=== PATIENT | male | born 1935 | race Caucasian/White ===

== ENCOUNTER 2017-10-13 14:35 | Inpatient (IN) ==
[2017-10-13] MEDS ORDERED: Vancomycin Inj 1,500 MG in Sodium Chlor 0.9% Inj 500 ML IV.SIG ONE (16:43)
[2017-10-13] MEDS ORDERED: Piperacil/Tazo 3.375 GM Premix 50 ML IV.SIG ONE (16:43)
--- NOTE | 2017-10-13 17:07 | ED ---
HPI General Chief complaint: Extremity Injury, Upper Stated complaint: hand complaint Time Seen by Provider: 10/13/17 16:03 Source: patient and family Mode of arrival: ambulatory Limitations: no limitations History of Present Illness HPI narrative: 82-year-old male with history of diabetes mellitus with poor neuropathy presents emergency department for evaluation of right distal third finger swelling, redness that is been persistent for several days. He says that he accidentally filed his nail down too far approximately 2 weeks ago when this problem started. Says he was treated with a course of antibiotics over the last 5 days. Says his finger seemed to improve but quickly worsened over the last 2 days. Patient denies significant pain but admits to a history of peripheral neuropathy and has limited sensation of his finger. He denies fevers or chills. Denies nausea vomiting or diarrhea. He has no other complaints today. Related Data Allergies Allergy/AdvReac Type Severity Reaction Status Date / Time No Known Allergies Allergy Unverified 10/13/17 16:20 Review of Systems Except as stated in HPI: all other systems reviewed are negative PMFSH Social History Social History Second Hand Smoke Exposure: No Smoking Status: Former smoker Tobacco Type: Cigarettes How Often Do You Have a Drink Containing Alcohol: Never Recent Travel in [facility] within the Last 8 Weeks: No Recent Out of Country Travel within the Last 8 Weeks: No Immunization History Tetanus Immunization: <5 Years Exam Narrative Exam Narrative: GENERAL: Well-developed, well-nourished in no apparent distress SKIN: Focused skin assessment warm/dry. Right hand third digit-erythematous and edematous to the entire third finger, distally nail is loosened from the nail bed, white, purulent malodorous discharge easily expressed, limited sensation although patient does feel light touch to the finger. Limited flexion and extension although he does have the ability to perform this passively and actively. HEAD: Atraumatic. Normocephalic. EYES: Pupils equal and round. No scleral icterus. No injection or drainage. ENT: No nasal bleeding or discharge. Mucous membranes pink and moist. NECK: Trachea midline. No JVD. CARDIOVASCULAR: Regular rate and rhythm. No murmur appreciated. RESPIRATORY: No accessory muscle use. Clear to auscultation. Breath sounds equal bilaterally. GASTROINTESTINAL: Abdomen soft, non-tender, nondistended. Hepatic and splenic margins not palpable. MUSCULOSKELETAL: No obvious deformities. No clubbing. No cyanosis. No edema. NEUROLOGICAL: Awake and alert. No obvious cranial nerve deficits. Motor grossly within normal limits. Normal speech. PSYCHIATRIC: Appropriate mood and affect; insight and judgment normal. Course Initial Documented Vital Signs Temperature 98.0 F 10/13/17 14:42 Pulse Rate 93 H 10/13/17 14:42 Respiratory Rate 18 10/13/17 14:42 Blood Pressure 154/70 H 10/13/17 14:42 Pulse Oximetry 100 10/13/17 14:42 Last Documented Vital Signs Temperature 97.2 F L 10/13/17 21:44 Pulse Rate 73 10/13/17 21:44 Respiratory Rate 18 10/13/17 21:44 Blood Pressure 125/61 10/13/17 21:44 Pulse Oximetry 97 10/13/17 21:44 Medical Decision Making MDM Narrative Medical decision making narrative: 82-year-old male presents emergency department evaluation of right third finger swelling, redness, mild pain that is been persistent for the last couple days. Patient has failed an out patient antibiotic course. While in the emergency department, the hand specialist on- call, Dr. Galarza was available for consult. Patient was evaluated and found to be a non-surgical candidate at this time. He recommended IV antibiotics and admission for monitoring. We will obtain full labs and will admit after results are back. X-ray consistent with osteomyelitis. Zosyn and vancomycin administered. Patient is stable at this time. The nurse, Justus, brought to my attention the rash on the patient's chest. Patient states that this is chronic and occasionally gets steroids but says that the rash does not bother him at this point. He says that he has been diagnosed with eczema. He will be admitted to Dr. Sher. Differential Diagnosis Differential Diagnosis: Right third finger tenosynovitis, cellulitis, erysipelas , abscess Lab Data Result diagrams: 10/13/17 16:50 10/13/17 16:50 Lab Results 10/13/17 10/13/17 10/13/17 Range/Units 16:50 16:50 16:50 WBC 9.0 (4.0-11.0) th/mm3 RBC 4.47 L (4.50-5.90) mil/mm3 Hgb 12.8 L (13.0-17.0) gm/dL Hct 38.2 L (39.0-51.0) % MCV 85.5 (80.0-100.0) fL MCH 28.6 (27.0-34.0) pg MCHC 33.5 (32.0-36.0) % RDW 14.4 (11.6-17.2) % Plt Count 291 (150-450) th/mm3 MPV 7.5 (7.0-11.0) fL Neut % (Auto) 77.7 H (16.0-70.0) % Lymph % (Auto) 10.0 (9.0-44.0) % Owsley % (Auto) 8.2 H (0.0-8.0) % Eos % (Auto) 3.7 (0.0-4.0) % Baso % (Auto) 0.4 (0.0-2.0) % Neut # (Auto) 7.0 (1.8-7.7) th/mm3 Lymph # (Auto) 0.9 L (1.0-4.8) th/mm3 Owsley # (Auto) 0.7 (0.0-0.9) th/mm3 Eos # (Auto) 0.3 (0.0-0.4) th/mm3 Baso # (Auto) 0.0 (0.0-0.2) th/mm3 WBC Differential . Differential Comment Auto diff final PT (9.8-11.6) sec INR Ratio APTT (24.3-30.1) sec Sodium 138 (136-145) meq/L Potassium 4.2 (3.5-5.1) meq/L Chloride 103 (98-107) meq/L Carbon Dioxide 25.8 (21.0-32.0) meq/L Anion Gap 9 (5-15) meq/L BUN 31 H (7-18) mg/dL Creatinine 1.60 H (0.60-1.30) mg/dL Estimated GFR 41 L (>89) mL/min POC Glucose (68-110) mg/dl Random Glucose 173 H (74-106) mg/dL Lactic Acid 1.7 (0.4-2.0) mmol/L Calcium 9.3 (8.5-10.1) mg/dL Total Bilirubin 0.3 (0.2-1.0) mg/dL AST 18 (15-37) U/L ALT 19 (12-78) U/L Alkaline Phosphatase 96 (45-117) U/L Total Protein 7.9 (6.4-8.2) g/dL Albumin 3.4 (3.4-5.0) g/dL 10/13/17 10/13/17 Range/Units 17:30 22:08 WBC (4.0-11.0) th/mm3 RBC (4.50-5.90) mil/mm3 Hgb (13.0-17.0) gm/dL Hct (39.0-51.0) % MCV (80.0-100.0) fL MCH (27.0-34.0) pg MCHC (32.0-36.0) % RDW (11.6-17.2) % Plt Count (150-450) th/mm3 MPV (7.0-11.0) fL Neut % (Auto) (16.0-70.0) % Lymph % (Auto) (9.0-44.0) % Owsley % (Auto) (0.0-8.0) % Eos % (Auto) (0.0-4.0) % Baso % (Auto) (0.0-2.0) % Neut # (Auto) (1.8-7.7) th/mm3 Lymph # (Auto) (1.0-4.8) th/mm3 Owsley # (Auto) (0.0-0.9) th/mm3 Eos # (Auto) (0.0-0.4) th/mm3 Baso # (Auto) (0.0-0.2) th/mm3 WBC Differential Differential Comment PT 10.3 (9.8-11.6) sec INR 1.0 Ratio APTT 30.3 H (24.3-30.1) sec Sodium (136-145) meq/L Potassium (3.5-5.1) meq/L Chloride (98-107) meq/L Carbon Dioxide (21.0-32.0) meq/L Anion Gap (5-15) meq/L BUN (7-18) mg/dL Creatinine (0.60-1.30) mg/dL Estimated GFR (>89) mL/min POC Glucose 200 H (68-110) mg/dl Random Glucose (74-106) mg/dL Lactic Acid (0.4-2.0) mmol/L Calcium (8.5-10.1) mg/dL Total Bilirubin (0.2-1.0) mg/dL AST (15-37) U/L ALT (12-78) U/L Alkaline Phosphatase (45-117) U/L Total Protein (6.4-8.2) g/dL Albumin (3.4-5.0) g/dL Imaging Data Radiologist's impression: Finger X-Ray 10/13/17 16:43 CONCLUSION: Destructive change involving the third distal phalanx most characteristic of osteomyelitis. Acute trauma with fracture could have a similar appearance. Discharge Plan Discharge Disposition Patient Disposition: 30 Still Patient Discharge Condition Condition: Stable Discharge Details Diagnosis: Cellulitis, Osteomyelitis Physicians Team ED Provider: Tessa Uriostegui ED Midlevel Provider: Lise Wolf Primary Care Provider: Primary Care Delia Sosa Attending Provider: Liberty Zheng Other Providers: Jamari Galarza Status ED Status: Left Department Discharge Information Discharge Date/Time: 10/13/17 21:36
[2017-10-13 17:18] LABS: Baso % (Auto) 0.4 % (0.0-2.0); Eos # (Auto) 0.3 th/mm3 (0.0-0.4); Eos % (Auto) 3.7 % (0.0-4.0); Hematocrit 38.2 % (39.0-51.0); Hemoglobin 12.8 gm/dL (13.0-17.0); Lymph # (Auto) 0.9 th/mm3 (1.0-4.8); Mean Corpuscular HGB Conc 33.5 % (32.0-36.0); Mean Corpuscular Hemoglobin 28.6 pg (27.0-34.0); Mean Corpuscular Volume 85.5 fL (80.0-100.0); Mean Platelet Volume 7.5 fL (7.0-11.0); Mono # (Auto) 0.7 th/mm3 (0.0-0.9); Mono % (Auto) 8.2 % (0.0-8.0); Neut % (Auto) 77.7 % (16.0-70.0); Platelet Count 291 th/mm3 (150-450); Red Blood Count 4.47 mil/mm3 (4.50-5.90); Red Cell Distribution Width 14.4 % (11.6-17.2)
--- NOTE | 2017-10-13 17:26 | XR ---
EXAM DATE: 10/13/2017 5:16 PM EDT AGE/SEX: 82 years / Male INDICATIONS: Right hand third digit redness and swelling. CLINICAL DATA: This is the patient's initial encounter. Patient reports that signs and symptoms have been present for 2 weeks and indicates a pain score of 0/10. MEDICAL/SURGICAL HISTORY: Diabetes mellitus type II. Peripheral neuropathy. None. COMPARISON: No prior exams available for comparison. FINDINGS: AP, lateral and oblique views of the third digit were obtained and demonstrate destructive change inv olving the third distal phalanx with multiple small adjacent fragments of bone. There is diffuse soft tissue swelling over the third digit. CONCLUSION: Destructive change involving the third distal phalanx most characteristic of osteomyelitis. Acute tra terrence with fracture could have a similar appearance. Electronically signed by: Socrates Ordaz MD 10/13/2017 5:24 PM EDT
[2017-10-13 17:30] LABS: Albumin 3.4 g/dL (3.4-5.0); Anion Gap 9 meq/L (5-15); Aspartate Aminotransferase 18 U/L (15-37); Blood Urea Nitrogen 31 mg/dL (7-18); Calcium 9.3 mg/dL (8.5-10.1); Carbon Dioxide 25.8 meq/L (21.0-32.0); Chloride 103 meq/L (98-107); Glomerular Filtration Rate 41 mL/min (>89); Glucose,Random 173 mg/dL (74-106); Potassium 4.2 meq/L (3.5-5.1); Sodium 138 meq/L (136-145)
[2017-10-13 17:31] LABS: Alanine Aminotransferase 19 U/L (12-78)
[2017-10-13 17:33] LABS: Alkaline Phosphatase 96 U/L (45-117); Total Protein 7.9 g/dL (6.4-8.2)
[2017-10-13] MEDS ORDERED: Bisacodyl 10 MG Supp RECTAL PRN (18:06)
[2017-10-13] MEDS ORDERED: Temazepam 15 MG Capsule PO PRN (18:06)
[2017-10-13] MEDS ORDERED: Dextrose 50% in Water 50 ML Vial IV.PUSH PRN (18:10)
[2017-10-13 18:51] LABS: Activated Partial Thrombo Time 30.3 sec (24.3-30.1); Prothrombin Time 10.3 sec (9.8-11.6)
[2017-10-13] MEDS ORDERED: Vancomycin Consult Pharmacy 1 EACH OTHER SCH (19:00)
[2017-10-13] MEDS: Piperacil/Tazo 4.5 GM Premix 4.5 GM/100 ML BAG IV.SIG SCH (19:55)
--- NOTE | 2017-10-13 21:25 | P.HPIM ---
History of Present Illness Primary Care Physician: No Primary Care Physician History of Present Illness: This is an 82-year-old male with a PMH of DM and Peripheral Neuropathy who presented to ER with complaints of right third finger swelling and redness. Pt states he filed his nail down w/ "sandpaper" approx 4 days ago, since he has neuropathy of that digit he didn't feel it when he scraped the skin on his finger. States he is visiting from [place], was previously in [place] a few days ago and was seen at [facility] for c/o right third finger redness/ swelling. Was discharged on antibiotics which he states he has been taking and noted improvement, however now w/ increasing redness/swelling. Denies fever or chills. On arrival, BP 154/70, HR 93, O2 sat 100% on RA, Afebrile. CBC essentially unremarkable. INR 1.0. Creatinine 1.60, no previous labs for comparison. Finger X-ray with destructive changes involving the third distal phalanx most characteristic of osteomyelitis versus acute trauma with fracture. Dr. Galarza consulted, plan is for surgical intervention in am. S/p Vanc/ Zosyn in ER. - Diagnosis (1) Osteomyelitis (2) DM (diabetes mellitus) (3) Renal insufficiency Inpatient Certification: I certify that the inpatient services were ordered in accordance with Medicare regulations governing the order. This includes certification that hospital inpatient services are reasonable and necessary and in the case of services not specified as inpatient-only under 42 CFR 419.22(n), that they are appropriately provided as inpatient services in accordance to with the 2-midnight benchmark under 43 CFR 412.3(e) Estimated Total Length of Stay (Days): 2 Plans for Post Hospital Care: Home Review of Systems All other systems reviewed negative except as stated in HPI PMFSH - History History Provided By: Patient - Tobacco History Second Hand Smoke Exposure: No Tobacco Use In Past 30 Days: No Smoking Status: Former smoker Tobacco Type: Cigarettes - Alcohol History How Often Do You Have a Drink Containing Alcohol: Never - Travel History Recent Travel in the [place] Within the Last 8 Weeks: No Recent Travel Out of the Country Within the Last 8 Weeks: No - Immunization History Tetanus Immunization: <5 Years Medications and Allergies Active Medications: Active Medications Al Hydroxide/Mg Hydroxide (Milk Of Magnesia Liq) 30 ml PO Q12H PRN PRN Reason: Mild Constipation Bisacodyl (Dulcolax Supp) 10 mg RECTAL DAILY PRN PRN Reason: SEVERE CONSITIPATION Dextrose (D50w Vial) 50 ml IV.PUSH UNSCH PRN PRN Reason: PER HYPOGLYCEMIA PROTOCOL Glucagon (Glucagon Inj) 1 mg OTHER PRN PRN PRN Reason: for Hypoglycemia Protocol Piperacillin/Tazobactam/Dextrose (Zosyn 4.5 Gm Premix) 4.5 gm in 100 mls @ 200 mls/hr IV.SIG Q6H JESSICA Last Admin: 10/13/17 19:55 Dose: 200 mls/hr Pharmacy Profile Note (Vancomycin Consult Pharmacy) 0 mls @ 0 mls/hr OTHER UNSCH JESSICA Sodium Chloride (Ns Inj) 1,000 mls @ 35 mls/hr IV.CONT .Q24H [facility] Insulin Aspart (Novolog Insulin Correctional Sugar Inj) 0 unit SQ ACHS JESSICA; Protocol Lactulose (Lactulose Liq) 30 ml PO DAILY PRN PRN Reason: SEVERE CONSITIPATION Senna/Docusate Sodium (Renay-Colace) 1 tab PO BID [facility] Sennosides (Senokot) 17.2 mg PO Q12H PRN PRN Reason: Moderate Constipation Temazepam (Restoril) 15 mg PO HS PRN PRN Reason: INSOMNIA Allergies Allergy/AdvReac Type Severity Reaction Status Date / Time No Known Allergies Allergy Unverified 10/13/17 16:20 Exam Vital signs: Vital Signs 10/13/17 14:42 10/13/17 17:06 Temperature 98.0 F Pulse Rate 93 H Respiratory Rate 18 Blood Pressure 154/70 H Pulse Oximetry 100 96 Intake & Output 10/13/17 10/13/17 10/14/17 06:59 18:59 06:59 Weight 74.389 kg Narrative: PE: GENERAL: Extremely pleasant elderly white male in no acute distress. HEENT: PERRLA, EOMI. No scleral icterus or conjunctival pallor. No lid lag or facial droop. CARDIOVASCULAR: Regular rate and rhythm. No obvious murmurs to auscultation. No chest tenderness to palpation. RESPIRATORY: No obvious rhonchi or wheezing. Clear to auscultation. Breath sounds equal bilaterally. GASTROINTESTINAL: Abdomen soft, non-tender, nondistended. BS normal. MUSCULOSKELETAL: Extremities without clubbing, cyanosis, or edema. No obvious deformities. 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 Right 3rd finger redness/swelling, decreased ROM due to swelling. NEUROLOGICAL: Awake, alert and oriented x4. No focal neurologic deficits. Moving both upper and lower extremities spontaneously. Results - Labs CBC & Chem 7: 10/13/17 16:50 10/13/17 16:50 Labs: Short CBC 10/13/17 Range/Units 16:50 WBC 9.0 (4.0-11.0) th/mm3 Hgb 12.8 L (13.0-17.0) gm/dL Hct 38.2 L (39.0-51.0) % Plt Count 291 (150-450) th/mm3 BMP 10/13/17 16:50 Sodium 138 Potassium 4.2 Chloride 103 Carbon Dioxide 25.8 BUN 31 H Creatinine 1.60 H Calcium 9.3 Liver Function 10/13/17 Range/Units 16:50 Total Bilirubin 0.3 (0.2-1.0) mg/dL AST 18 (15-37) U/L ALT 19 (12-78) U/L Alkaline Phosphatase 96 (45-117) U/L Albumin 3.4 (3.4-5.0) g/dL - Imaging Impressions Finger X-Ray 10/13/17 16:43 CONCLUSION: Destructive change involving the third distal phalanx most characteristic of osteomyelitis. Acute trauma with fracture could have a similar appearance. Caprini VTE Risk Assessment Caprini VTE Risk Assessment: No/Low Risk (score <= 1) Caprini Risk Assessment Model: Point Value = 1 Point Value = 2 Point Value = 3 Point Value = 5 Age 41-60 Minor surgery BMI > 25 kg/m2 Swollen legs Varicose veins or History of unexplained or recurrent spontaneous Oral contraceptives or hormone replacement Sepsis (< 1 month) Serious lung disease, including pneumonia (< 1 month) Abnormal pulmonary function Acute myocardial infarction Congestive heart failure (< 1 month) History of inflammatory bowel disease Medical patient at bed rest Age 61-74 Arthroscopic surgery Major open surgery (> 45 min) Laparoscopic surgery (> 45 min) Malignancy Confined to bed (> 72 hours) Immobilizing plaster cast Central venous access Age >= 75 History of VTE Family history of VTE Factor V Leiden Prothrombin [id number] Lupus anticoagulant Anticardiolipin antibodies Elevated serum homocysteine Heparin-induced thrombocytopenia Other congenital or acquired thrombophilia Stroke (< 1 month) Elective arthroplasty Hip, pelvis, or leg fracture Acute spinal cord injury (< 1 month) Prophylaxis Regimen: Total Risk Factor Score Risk Level Prophylaxis Regimen 0-1 Low Early ambulation 2 Moderate Order ONE of the following: *Sequential Compression Device (SCD) *Heparin 5000 units SQ BID 3-4 Higher Order ONE of the following medications: *Heparin 5000 units SQ TID *Enoxaparin/Lovenox 40 mg SQ daily (WT < 150 kg, CrCl > 30 mL/min) *Enoxaparin/Lovenox 30 mg SQ daily (WT < 150 kg, CrCl > 10-29 mL/min) *Enoxaparin/Lovenox 30 mg SQ BID (WT < 150 kg, CrCl > 30 mL/min) AND/OR *Sequential Compression Device (SCD) 5 or more Highest Order ONE of the following medications: *Heparin 5000 units SQ TID (Preferred with Epidurals) *Enoxaparin/Lovenox 40 mg SQ daily (WT < 150 kg, CrCl > 30 mL/min) *Enoxaparin/Lovenox 30 mg SQ daily (WT < 150 kg, CrCl > 10-29 mL/min) *Enoxaparin/Lovenox 30 mg SQ BID (WT < 150 kg, CrCl > 30 mL/min) AND *Sequential Compression Device (SCD) Assessment and Plan - Assessment (1) Osteomyelitis Code(s): M86.9 - Osteomyelitis, unspecified Status: Acute (2) DM (diabetes mellitus) Code(s): E11.9 - Type 2 diabetes mellitus without complications Status: Acute (3) Renal insufficiency Code(s): N28.9 - Disorder of kidney and ureter, unspecified Status: Acute - Plan A/P: 1. Osteomyelitis: Right 3rd finger, s/p trauma after using sandpaper to file his nail 4 days ago, s/p eval at [facility], on PO antibiotics w/ transient improvement, now w/ worsening erythema/edema. Finger X-ray w/ destructive changes of 3rd distal phalanx characteristic of osteomyelitis vs trauma w/ fracture. Dr. Galarza consulted, plan is for surgical intervention in am. NPO after midnight, IVF, analgesics/antiemetics as needed. Continue IV Abx 2. DM: Sliding scale w/ Accu-Cheks. 3. Renal Insufficiency: Creatinine 1.60, no previous labs for comparison, monitor I/O, IVF, repeat labs in am. 4. DVT Prophylaxis: SCD/Teds 5. Social work for d/c planning as needed 6. Case discussed w/ ER physician at length, labs/records/imaging reviewed by me. (1) Osteomyelitis Qualifiers: Osteomyelitis type: subacute Osteomyelitis location: hand Laterality: right Qualified Code(s): M86.241 - Subacute osteomyelitis, right hand
[2017-10-13] MEDS: Sod Chloride 0.9% Inj 1,000 ML IV.CONT SCH (22:06)
[2017-10-13] MEDS: Senna/Docusate Sodium 8.6/50 MG Tablet PO SCH (22:12)
[2017-10-13] MEDS: Insulin NovoLOG Aspart Correctional Sugar Inj SQ SCH (22:13)
[2017-10-14] MEDS: Piperacil/Tazo 4.5 GM Premix 4.5 GM/100 ML BAG IV.SIG SCH ×2 (00:31→06:17)
[2017-10-14] MEDS: Senna/Docusate Sodium 8.6/50 MG Tablet PO SCH ×2 (08:42→22:03)
[2017-10-14] MEDS: Insulin NovoLOG Aspart Correctional Sugar Inj SQ SCH ×4 (08:42→22:02)
[2017-10-14 09:11] LABS: Baso # (Auto) 0.1 th/mm3 (0.0-0.2); Baso % (Auto) 0.7 % (0.0-2.0); Eos # (Auto) 0.5 th/mm3 (0.0-0.4); Hematocrit 32.6 % (39.0-51.0); Hemoglobin 10.9 gm/dL (13.0-17.0); Lymph % (Auto) 12.7 % (9.0-44.0); Mean Corpuscular HGB Conc 33.3 % (32.0-36.0); Mean Corpuscular Hemoglobin 28.4 pg (27.0-34.0); Mean Corpuscular Volume 85.3 fL (80.0-100.0); Mean Platelet Volume 7.9 fL (7.0-11.0); Mono # (Auto) 0.7 th/mm3 (0.0-0.9); Mono % (Auto) 9.3 % (0.0-8.0); Neut # (Auto) 5.5 th/mm3 (1.8-7.7); Neut % (Auto) 70.3 % (16.0-70.0); Platelet Count 257 th/mm3 (150-450); Red Blood Count 3.82 mil/mm3 (4.50-5.90); Red Cell Distribution Width 14.2 % (11.6-17.2); White Blood Count 7.8 th/mm3 (4.0-11.0)
[2017-10-14 09:40] LABS: Albumin 2.7 g/dL (3.4-5.0); Anion Gap 9 meq/L (5-15); Aspartate Aminotransferase 14 U/L (15-37); Blood Urea Nitrogen 25 mg/dL (7-18); Carbon Dioxide 26.5 meq/L (21.0-32.0); Chloride 106 meq/L (98-107); Glomerular Filtration Rate 45 mL/min (>89); Glucose,Random 85 mg/dL (74-106); Potassium 4.7 meq/L (3.5-5.1); Sodium 141 meq/L (136-145)
[2017-10-14 09:41] LABS: Alanine Aminotransferase 15 U/L (12-78); Alkaline Phosphatase 68 U/L (45-117); Total Protein 6.6 g/dL (6.4-8.2)
[2017-10-14] MEDS ORDERED: Morphine Inj 4 MG/ML Vial IV.PUSH PRN ×4 (11:08)
[2017-10-14] MEDS ORDERED: Naloxone Inj 0.4 MG/ML Vial IV.PUSH PRN (11:08)
[2017-10-14] MEDS ORDERED: oxyCODONE/Acetaminophen 10/325 Tablet PO PRN (11:08)
[2017-10-14] MEDS ORDERED: Acetaminophen 325 MG Tablet PO PRN (11:08)
--- NOTE | 2017-10-14 11:13 | P.PNIM ---
Subjective Interval history: This is an 82-year-old male with a PMH of DM and Peripheral Neuropathy who presented to ER with complaints of right third finger swelling and redness. Pt states he filed his nail down w/ "sandpaper" approx 4 days ago, since he has neuropathy of that digit he didn't feel it when he scraped the skin on his finger. States he is visiting from [place], was previously in [place] a few days ago and was seen at [facility] for c/o right third finger redness/ swelling. Was discharged on antibiotics which he states he has been taking and noted improvement, however now w/ increasing redness/swelling. Denies fever or chills. On arrival, BP 154/70, HR 93, O2 sat 100% on RA, Afebrile. CBC essentially unremarkable. INR 1.0. Creatinine 1.60, no previous labs for comparison. Finger X-ray with destructive changes involving the third distal phalanx most characteristic of osteomyelitis versus acute trauma with fracture. Dr. Galarza consulted, plan is for surgical intervention in am. S/p Vanc/ Zosyn in ER. 10-14 NO NEW COMPLAINTS SEEN BY SURGERY WILL ORDER RIGHT HAND MRI NO SURGERY SCHEDULED WILL TRY TO GET HOME MEDS DONE DW RN and PT AND CM WILL ORDER MRI AWAIT CULTURES CONTINUE VANCO AND ZOSYN MIGHT NEED ID DEPENDING ON MRI RESULTS Physical Exam Vital signs: Vital Signs 10/13/17 14:42 10/13/17 17:06 10/13/17 21:44 Temperature 98.0 F 97.2 F L Pulse Rate 93 H 73 Respiratory Rate 18 18 Blood Pressure 154/70 H 125/61 Pulse Oximetry 100 96 97 10/14/17 00:00 10/14/17 04:00 10/14/17 08:54 Temperature 97.9 F 97.5 F L 97.8 F Pulse Rate 68 63 67 Respiratory Rate 20 18 16 Blood Pressure 102/57 L 94/53 L 121/65 Pulse Oximetry 96 96 98 Intake & Output 10/13/17 10/14/17 10/14/17 18:59 06:59 18:59 Intake Total 200 / 200 Balance 200 / 200 Weight 74.389 kg 74.2 kg Intake: IV 200 / 200 Zosyn 4.5 GM Premix 4.5 gm In 200 / 200 100 ml @ 200 mls/hr IV.SIG Q6H JESSICA Rx#:[id number] Other: # Voids 1 Date of Last Bowel Movement 10/13/17 10/13/17 Weight On Admission 74.2 kg Narrative: GENERAL: Awake alert and oriented 3 talkative and cooperative SKIN: Warm and dry. Right middle finger with wounds and erythema decreased range of motion and tenderness HEAD: Atraumatic. Normocephalic. EYES: Pupils equal and round. No scleral icterus. No injection or drainage. Extraocular muscles intact ENT: No nasal bleeding or discharge. Mucous membranes pink and moist. Tongue is midline NECK: Trachea midline. No JVD. Supple CARDIOVASCULAR: Regular rate and rhythm. S1-S2 no S3 or S4 RESPIRATORY: No accessory muscle use. Clear to auscultation. Breath sounds equal bilaterally. GASTROINTESTINAL: Abdomen soft, non-tender, nondistended. Hepatic and splenic margins not palpable. MUSCULOSKELETAL: Extremities without clubbing, cyanosis, or edema. No obvious deformities. 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 No obvious cranial nerve deficits. Motor grossly within normal limits. Five out of 5 muscle strength in the arms and legs. Normal speech. 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 Results - Labs CBC & Chem 7: 10/14/17 07:52 10/14/17 07:52 Laboratory Results - last 24 hr 10/13/17 10/13/17 10/13/17 16:50 16:50 16:50 WBC 9.0 RBC 4.47 L Hgb 12.8 L Hct 38.2 L MCV 85.5 MCH 28.6 MCHC 33.5 RDW 14.4 Plt Count 291 MPV 7.5 Neut % (Auto) 77.7 H Lymph % (Auto) 10.0 [place] % (Auto) 8.2 H Eos % (Auto) 3.7 Baso % (Auto) 0.4 Neut # (Auto) 7.0 Lymph # (Auto) 0.9 L [place] # (Auto) 0.7 Eos # (Auto) 0.3 Baso # (Auto) 0.0 WBC Differential . Differential Comment Auto diff final PT INR APTT Sodium 138 Potassium 4.2 Chloride 103 Carbon Dioxide 25.8 Anion Gap 9 BUN 31 H Creatinine 1.60 H Estimated GFR 41 L POC Glucose Random Glucose 173 H Lactic Acid 1.7 Calcium 9.3 Total Bilirubin 0.3 AST 18 ALT 19 Alkaline Phosphatase 96 Total Protein 7.9 Albumin 3.4 10/13/17 10/13/17 10/14/17 17:30 22:08 07:46 WBC RBC Hgb Hct MCV MCH MCHC RDW Plt Count MPV Neut % (Auto) Lymph % (Auto) [place] % (Auto) Eos % (Auto) Baso % (Auto) Neut # (Auto) Lymph # (Auto) [place] # (Auto) Eos # (Auto) Baso # (Auto) WBC Differential Differential Comment PT 10.3 INR 1.0 APTT 30.3 H Sodium Potassium Chloride Carbon Dioxide Anion Gap BUN Creatinine Estimated GFR POC Glucose 200 H 98 Random Glucose Lactic Acid Calcium Total Bilirubin AST ALT Alkaline Phosphatase Total Protein Albumin 10/14/17 10/14/17 07:52 07:52 WBC 7.8 RBC 3.82 L Hgb 10.9 L Hct 32.6 L MCV 85.3 MCH 28.4 MCHC 33.3 RDW 14.2 Plt Count 257 MPV 7.9 Neut % (Auto) 70.3 H Lymph % (Auto) 12.7 [place] % (Auto) 9.3 H Eos % (Auto) 7.0 H Baso % (Auto) 0.7 Neut # (Auto) 5.5 Lymph # (Auto) 1.0 [place] # (Auto) 0.7 Eos # (Auto) 0.5 H Baso # (Auto) 0.1 WBC Differential . Differential Comment Auto diff final PT INR APTT Sodium 141 Potassium 4.7 Chloride 106 Carbon Dioxide 26.5 Anion Gap 9 BUN 25 H Creatinine 1.49 H Estimated GFR 45 L POC Glucose Random Glucose 85 Lactic Acid Calcium 9.0 Total Bilirubin 0.5 AST 14 L ALT 15 Alkaline Phosphatase 68 Total Protein 6.6 D Albumin 2.7 L D Microbiology 10/13/17 16:50 Blood - Peripheral Aerobic Blood Culture - Preliminary No growth in 1 day 10/13/17 16:50 Blood - Peripheral Anaerobic Blood Culture - Preliminary No growth in 1 day 10/13/17 16:55 Blood - Peripheral Aerobic Blood Culture - Preliminary No growth in 1 day 10/13/17 16:55 Blood - Peripheral Anaerobic Blood Culture - Preliminary No growth in 1 day 10/13/17 16:50 Abscess - Finger Gram Stain - Final - Imaging Impressions Finger X-Ray 10/13/17 16:43 CONCLUSION: Destructive change involving the third distal phalanx most characteristic of osteomyelitis. Acute trauma with fracture could have a similar appearance. - Procedures NONE Assessment and Plan - Assessment (1) Osteomyelitis Code(s): M86.9 - Osteomyelitis, unspecified Status: Acute (2) DM (diabetes mellitus) Code(s): E11.9 - Type 2 diabetes mellitus without complications Status: Acute (3) Renal insufficiency Code(s): N28.9 - Disorder of kidney and ureter, unspecified Status: Acute - Plan 1. Osteomyelitis: Right 3rd finger, s/p trauma after using sandpaper to file his nail 4 days ago, s/p eval at [facility], on PO antibiotics w/ transient improvement, now w/ worsening erythema/edema. Finger X-ray w/ destructive changes of 3rd distal phalanx characteristic of osteomyelitis vs trauma w/ fracture. Dr. Galarza consulted, no plans for surgery at this time will get MRI of the right hand- IVF, analgesics/antiemetics as needed. Continue IV Abx 2. DM: Sliding scale w/ Accu-Cheks. States he takes Januvia and metformin at home Hypertension continue on his enalapril once in the computer 3. Renal Insufficiency: Creatinine 1.60, no previous labs for comparison, monitor I/O, IVF, repeat labs in am. 4. DVT Prophylaxis: SCD/Teds 5. Social work for d/c planning as needed We will continue on sliding scale coverage with Accu-Cheks before meals and at bedtime AM LABS DW RN AND PT AND CM Code Status: FULL CODE Discussed Condition With: RN AND PT AND CM Discharge Planning: PENDING IMPROVEMENT WILL NEED MRI OF RIGHT HAND (1) Osteomyelitis Qualifiers: Osteomyelitis type: subacute Osteomyelitis location: hand Laterality: right Qualified Code(s): M86.241 - Subacute osteomyelitis, right hand
[2017-10-14] MEDS ORDERED: Piperacil/Tazo 4.5 GM Premix 4.5 GM/100 ML BAG IV.SIG SCH (12:00)
--- NOTE | 2017-10-14 14:11 | ECG ---
Date Performed: 10/13/2017 Time Performed: 17:51:26 PTAGE: 82 years EKG: Sinus rhythm MARKED LEFT AXIS DEVIATION ABNORMAL ECG NO PREVIOUS TRACING DOCTOR: Arden Brown Interpretating Date/Time 10/14/2017 14:08:30
[2017-10-14] MEDS ORDERED: SIMVASTATIN 5 MG PO SCH (14:30)
[2017-10-14] MEDS: Piperacil/Tazo 3.375 GM Premix 50 ML IV.SIG SCH (17:20)
[2017-10-14] MEDS: Sod Chloride 0.9% Inj 1,000 ML IV.CONT SCH (22:04)
[2017-10-15] MEDS: Piperacil/Tazo 3.375 GM Premix 50 ML IV.SIG SCH ×5 (00:37→23:44)
--- NOTE | 2017-10-15 09:16 | MR ---
EXAM DATE: 10/15/2017 9:07 AM EDT AGE/SEX: 82 years / Male INDICATIONS: Osteomyelitis. CLINICAL DATA: This is the patient's initial encounter. Patient reports that signs and symptoms have been present for 2 weeks and indicates a pain score of 0/10. MEDICAL/SURGICAL HISTORY: Renal insufficiency. Diabetes mellitus type II. Hypertension. . Cat aracts. COMPARISON: [facility], FINGER RIGHT 3RD DIGIT MIN 2V, 10/13/2017. . TECHNIQUE: Multiplanar, multisequence MRI examination was performed without contrast. FINDINGS: There is abnormal signal with edema diffusely involving the third distal phalanx corresponding to dafne tructive lytic lesions seen on the patient's x-ray. This is consistent with osteomyelitis in the appr opriate clinical setting. There is no evidence for soft tissue abscess. CONCLUSION: 1. Findings are characteristic of osteomyelitis in the appropriate clinical setting of the third dis park phalanx. Electronically signed by: Shannan Garcia MD 10/15/2017 9:15 AM EDT
[2017-10-15 09:42] LABS: INR 1.1 Ratio; Prothrombin Time 11.2 sec (9.8-11.6)
[2017-10-15 09:45] LABS: Baso % (Auto) 0.7 % (0.0-2.0); Eos # (Auto) 0.7 th/mm3 (0.0-0.4); Eos % (Auto) 10.9 % (0.0-4.0); Hematocrit 32.7 % (39.0-51.0); Lymph # (Auto) 1.2 th/mm3 (1.0-4.8); Lymph % (Auto) 18.3 % (9.0-44.0); Mean Corpuscular HGB Conc 33.6 % (32.0-36.0); Mean Corpuscular Hemoglobin 28.3 pg (27.0-34.0); Mean Corpuscular Volume 84.2 fL (80.0-100.0); Mean Platelet Volume 7.7 fL (7.0-11.0); Mono # (Auto) 0.7 th/mm3 (0.0-0.9); Mono % (Auto) 11.5 % (0.0-8.0); Neut # (Auto) 3.8 th/mm3 (1.8-7.7); Neut % (Auto) 58.6 % (16.0-70.0); Platelet Count 245 th/mm3 (150-450); Red Blood Count 3.88 mil/mm3 (4.50-5.90); Red Cell Distribution Width 13.7 % (11.6-17.2); White Blood Count 6.4 th/mm3 (4.0-11.0)
[2017-10-15] MEDS: Insulin NovoLOG Aspart Correctional Sugar Inj SQ SCH ×4 (10:00→21:33)
[2017-10-15 10:06] LABS: Alanine Aminotransferase 14 U/L (12-78); Albumin 2.6 g/dL (3.4-5.0); Alkaline Phosphatase 66 U/L (45-117); Anion Gap 10 meq/L (5-15); Aspartate Aminotransferase 17 U/L (15-37); Blood Urea Nitrogen 21 mg/dL (7-18); Calcium 8.8 mg/dL (8.5-10.1); Carbon Dioxide 22.7 meq/L (21.0-32.0); Chloride 106 meq/L (98-107); Free T4 (Free Thyroxine) 1.23 ng/dL (0.76-1.46); Glomerular Filtration Rate 45 mL/min (>89); Glucose,Random 96 mg/dL (74-106); Phosphorus 2.9 mg/dL (2.5-4.9); Potassium 3.9 meq/L (3.5-5.1); Sodium 139 meq/L (136-145); Total Protein 6.5 g/dL (6.4-8.2); Vancomycin,Random 5.4 Comment
[2017-10-15 11:02] LABS: Hemoglobin A1c 7.5 % (4.3-6.0)
[2017-10-15] MEDS: Senna/Docusate Sodium 8.6/50 MG Tablet PO SCH ×2 (11:55→21:27)
[2017-10-15] MEDS ORDERED: Vancomycin Inj 1,500 MG in Sodium Chlor 0.9% Inj 500 ML IV.SIG ONE ×2 (12:00)
--- NOTE | 2017-10-15 14:17 | P.PN ---
Subjective Interval history: Follow-up on patient with right third finger osteo-myelitis. Patient seen and examined. Patient denies any acute medical complaints. States he feels well. Reports that the swelling and redness in the right third finger is much improved since receiving IV antibiotics. He denies any fever chills. Denies any chest pain or shortness of breath. Denies any nausea, vomiting or abdominal pain. Physical Exam Vital signs: Vital Signs 10/14/17 17:17 10/15/17 00:00 10/15/17 04:00 Temperature 98.2 F 98 F 97.7 F Pulse Rate 75 69 64 Respiratory Rate 16 18 18 Blood Pressure 121/58 L 121/61 111/60 Pulse Oximetry 95 96 95 10/15/17 09:36 Temperature 97.5 F L Pulse Rate 92 H Respiratory Rate 18 Blood Pressure 120/58 L Pulse Oximetry 98 Intake & Output 10/14/17 10/15/17 10/15/17 18:59 06:59 18:59 Intake Total 50 / 50 1100 / 1100 Balance 50 / 50 1100 / 1100 Weight 74.2 kg Intake: IV 50 / 50 1100 / 1100 NS Inj 1,000 ML @ 35 mls/hr IV. 1000 / 1000 CONT .Q24H JESSICA Rx#:[id number] Zosyn 3.375 GM Premix 50 ML @ 50 / 50 100 / 100 100 mls/hr IV.SIG Q6H JESSICA Rx#: [id number] Other: # Voids 2 Date of Last Bowel Movement 10/13/17 10/14/17 Narrative: GENERAL: This is a well-developed well-nourished elderly male patient , in no acute distress. A&O 3. SKIN: Warm and dry. HEAD: Atraumatic. Normocephalic. EYES: Pupils equal and round. No scleral icterus. No injection or drainage. ENT: No nasal bleeding or discharge. Mucous membranes pink and moist. NECK: Trachea midline. No JVD. CARDIOVASCULAR: Regular rate and rhythm. RESPIRATORY: No accessory muscle use. Clear to auscultation. Breath sounds equal bilaterally. GASTROINTESTINAL: Abdomen soft, non-tender, nondistended. MUSCULOSKELETAL: Extremities without clubbing or cyanosis. Right third digit with small draining sinus proximal to the nail plate, mild to moderate surrounding erythema and edema. Good range of motion. 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 NEUROLOGICAL: Awake and alert. No obvious cranial nerve deficits. Motor grossly within normal limits. Normal speech. PSYCHIATRIC: Appropriate mood and affect; insight and judgment normal. Results - Labs CBC & Chem 7: 10/15/17 07:04 10/15/17 07:04 Laboratory Results - last 24 hr 10/14/17 10/14/17 10/15/17 16:48 19:37 07:04 WBC RBC Hgb Hct MCV MCH MCHC RDW Plt Count MPV Neut % (Auto) Lymph % (Auto) [place] % (Auto) Eos % (Auto) Baso % (Auto) Neut # (Auto) Lymph # (Auto) [place] # (Auto) Eos # (Auto) Baso # (Auto) WBC Differential Differential Comment PT INR Sodium 139 Potassium 3.9 D Chloride 106 Carbon Dioxide 22.7 Anion Gap 10 BUN 21 H Creatinine 1.48 H Estimated GFR 45 L POC Glucose 162 H 222 H Random Glucose 96 Hemoglobin A1c Calcium 8.8 Phosphorus 2.9 Magnesium 2.0 Total Bilirubin 0.3 AST 17 ALT 14 Alkaline Phosphatase 66 Total Protein 6.5 Albumin 2.6 L TSH 1.480 Free T4 1.23 Random Vancomycin 5.4 10/15/17 10/15/17 10/15/17 07:04 07:04 07:04 WBC 6.4 RBC 3.88 L Hgb 11.0 L Hct 32.7 L MCV 84.2 MCH 28.3 MCHC 33.6 RDW 13.7 Plt Count 245 MPV 7.7 Neut % (Auto) 58.6 Lymph % (Auto) 18.3 [place] % (Auto) 11.5 H Eos % (Auto) 10.9 H Baso % (Auto) 0.7 Neut # (Auto) 3.8 Lymph # (Auto) 1.2 [place] # (Auto) 0.7 Eos # (Auto) 0.7 H Baso # (Auto) 0.0 WBC Differential . Differential Comment Auto diff final PT 11.2 INR 1.1 Sodium Potassium Chloride Carbon Dioxide Anion Gap BUN Creatinine Estimated GFR POC Glucose Random Glucose Hemoglobin A1c 7.5 H Calcium Phosphorus Magnesium Total Bilirubin AST ALT Alkaline Phosphatase Total Protein Albumin TSH Free T4 Random Vancomycin 10/15/17 10:31 WBC RBC Hgb Hct MCV MCH MCHC RDW Plt Count MPV Neut % (Auto) Lymph % (Auto) [place] % (Auto) Eos % (Auto) Baso % (Auto) Neut # (Auto) Lymph # (Auto) [place] # (Auto) Eos # (Auto) Baso # (Auto) WBC Differential Differential Comment PT INR Sodium Potassium Chloride Carbon Dioxide Anion Gap BUN Creatinine Estimated GFR POC Glucose 274 H Random Glucose Hemoglobin A1c Calcium Phosphorus Magnesium Total Bilirubin AST ALT Alkaline Phosphatase Total Protein Albumin TSH Free T4 Random Vancomycin Microbiology 10/13/17 16:50 Blood - Peripheral Aerobic Blood Culture - Preliminary No growth in 2 days 10/13/17 16:50 Blood - Peripheral Anaerobic Blood Culture - Preliminary No growth in 2 days 10/13/17 16:55 Blood - Peripheral Aerobic Blood Culture - Preliminary No growth in 2 days 10/13/17 16:55 Blood - Peripheral Anaerobic Blood Culture - Preliminary No growth in 2 days 10/13/17 16:50 Abscess - Finger Gram Stain - Final 10/13/17 16:50 Abscess - Finger Wound Culture - Final Staphylococcus aureus Klebsiella pneumoniae Sharron albicans - Imaging Impressions Hand MRI 10/15/17 00:00 CONCLUSION: 1. Findings are characteristic of osteomyelitis in the appropriate clinical setting of the third distal phalanx. - Procedures NONE Assessment and Plan - Assessment (1) Osteomyelitis Code(s): M86.9 - Osteomyelitis, unspecified Status: Acute (2) DM (diabetes mellitus) Code(s): E11.9 - Type 2 diabetes mellitus without complications Status: Acute (3) Renal insufficiency Code(s): N28.9 - Disorder of kidney and ureter, unspecified Status: Acute - Plan 82-year-old male with diabetes admitted with osteomyelitis right middle finger. Osteomyelitis: Right 3rd finger, s/p trauma after using sandpaper to file his nail 4 days ago, s/p eval at [facility], on PO antibiotics w/ transient improvement, now w/ worsening erythema/edema. MRI + osteomyelitis Dr. Espinoza following, appreciate assistance. No concern for flexor tenosynovitis. No plans for surgical intervention at this time. Consult ID, appreciate assistance Continue with IV antibiotics Vancomycin and Zosyn Pain management with bowel regimen DM HgbA1c 7.5 Blood sugars adequately controlled Continue sliding scale w/ Accu-Cheks States he takes Januvia and metformin at home - continue to hold for now Hypertension Blood pressure well controlled at present off of antihypertensives Continue to monitor closely Clonidine prn with parameters Renal Insufficiency, suspect acute on chronic Creatinine 1.60, no previous labs for comparison improving, creatinine now 1.48, suspect this is near his baseline Avoid nephrotoxic agents Continue to monitor kidney function DVT Prophylaxis: SCD/Teds Discussed Condition With: Patient, nursing staff, Dr. Ortiz Discharge Planning: Not ready for discharge. Discharge pending hand and ID clearance. (1) Osteomyelitis Qualifiers: Osteomyelitis type: subacute Osteomyelitis location: hand Laterality: right Qualified Code(s): M86.241 - Subacute osteomyelitis, right hand
--- NOTE | 2017-10-15 14:42 | P.CON ---
History of Present Illness Primary Care Provider: No Primary Care Physician History of Present Illness: Hand Surgery This is an 82-year-old male with a PMH of DM and Peripheral Neuropathy who presented to ER with complaints of right third finger swelling and redness. Pt states he filed his nail down w/ "sandpaper" approx 4 days ago, since he has neuropathy of that digit he didn't feel it when he scraped the skin on his finger. States he is visiting from [place], was previously in [place] a few days ago and was seen at [facility] for c/o right third finger redness/ swelling. Was discharged on antibiotics which he states he has been taking and noted improvement, however now w/ increasing redness/swelling. Denies fever or chills. On arrival, BP 154/70, HR 93, O2 sat 100% on RA, Afebrile. CBC essentially unremarkable. INR 1.0. Creatinine 1.60, no previous labs for comparison. Finger X-ray with destructive changes involving the third distal phalanx most characteristic of osteomyelitis versus acute trauma with fracture. Hand Surgery consulted Except as noted in the HPI, ROS/PMH/PSH negative to presenting complaint FH non-contributory to presenting complaint Med list reviewed - Tobacco History Second Hand Smoke Exposure: No Tobacco Use In Past 30 Days: No Smoking Status: Former smoker Tobacco Type: Cigarettes - Alcohol History How Often Do You Have a Drink Containing Alcohol: Never - Travel History Recent Travel in the [place] Within the Last 8 Weeks: No Recent Travel Out of the Country Within the Last 8 Weeks: No - Immunization History Tetanus Immunization: <5 Years PMFSH - History History Provided By: Patient - Tobacco History Second Hand Smoke Exposure: No Tobacco Use In Past 30 Days: No Smoking Status: Former smoker Tobacco Type: Cigarettes - Alcohol History How Often Do You Have a Drink Containing Alcohol: Never - Substance Use History Substance History: No History of Abuse - Travel History Recent Travel in the [place] Within the Last 8 Weeks: No Recent Travel Out of the Country Within the Last 8 Weeks: No - Immunization History Tetanus Immunization: <5 Years Medications and Allergies Active Medications: Active Medications Acetaminophen (Tylenol) 650 mg PO Q6H PRN PRN Reason: PAIN SCALE 1 TO 2 Al Hydroxide/Mg Hydroxide (Milk Of Magnesia Liq) 30 ml PO Q12H PRN PRN Reason: Mild Constipation Bisacodyl (Dulcolax Supp) 10 mg RECTAL DAILY PRN PRN Reason: SEVERE CONSITIPATION Clonidine HCl (Catapres) 0.1 mg PO Q6H PRN PRN Reason: HYPERTENSION Dextrose (D50w Vial) 50 ml IV.PUSH UNSCH PRN PRN Reason: PER HYPOGLYCEMIA PROTOCOL Glucagon (Glucagon Inj) 1 mg OTHER PRN PRN PRN Reason: for Hypoglycemia Protocol Pharmacy Profile Note (Vancomycin Consult Pharmacy) 0 mls @ 0 mls/hr OTHER UNSCH [facility] Sodium Chloride (Ns Inj) 1,000 mls @ 35 mls/hr IV.CONT .Q24H [facility] Last Admin: 10/14/17 22:04 Dose: 35 mls/hr Piperacillin/Tazobactam/Dextrose (Zosyn 3.375 Gm Premix) 50 mls @ 100 mls/hr IV.SIG Q6H [facility] Last Admin: 10/15/17 12:23 Dose: 100 mls/hr Insulin Aspart (Novolog Insulin Correctional Sugar Inj) 0 unit SQ ACHS [facility]; Protocol Last Admin: 10/15/17 10:00 Dose: 5 unit Lactulose (Lactulose Liq) 30 ml PO DAILY PRN PRN Reason: SEVERE CONSITIPATION Morphine Sulfate (Morphine Inj) 2 mg IV.PUSH Q3H PRN PRN Reason: PAIN 3-5; IF UABLE TO TAKE PO Morphine Sulfate (Morphine Inj) 4 mg IV.PUSH Q3H PRN PRN Reason: PAIN 6-10;IF UNABLE TO TAKE PO Morphine Sulfate (Morphine Inj) 4 mg IV.PUSH Q3H PRN PRN Reason: BREAKTHROUGH PAIN Morphine Sulfate (Morphine Inj) 4 mg IV.PUSH Q1H PRN PRN Reason: Pain Scale 7-10 (Intractable) Naloxone HCl (Narcan Inj) 0.4 mg IV.PUSH UNSCH PRN PRN Reason: SEE LABEL COMMENTS Oxycodone/Acetaminophen (Percocet 10/325 Mg) 1 tab PO Q6H PRN PRN Reason: PAIN SCALE 6 TO 10 Oxycodone/Acetaminophen (Percocet 5/325 Mg) 1 tab PO Q6H PRN PRN Reason: PAIN SCALE 3 TO 5 Pravastatin Sodium (Pravachol) 10 mg PO DAILY [facility] Last Admin: 10/15/17 10:28 Dose: 10 mg Senna/Docusate Sodium (Renay-Colace) 1 tab PO BID [facility] Last Admin: 10/15/17 11:55 Dose: Not Given Sennosides (Senokot) 17.2 mg PO Q12H PRN PRN Reason: Moderate Constipation Temazepam (Restoril) 15 mg PO HS PRN PRN Reason: INSOMNIA Allergies Allergy/AdvReac Type Severity Reaction Status Date / Time No Known Allergies Allergy Unverified 10/13/17 16:20 Home Medications Medication Instructions Recorded Confirmed Type enalapril-hydrochlorothiazide 20 mg DAILY 10/14/17 10/14/17 History simvastatin 5 mg PO DAILY 10/14/17 10/14/17 History Physical Exam Vital signs: Vital Signs 10/14/17 17:17 10/15/17 00:00 10/15/17 04:00 Temperature 98.2 F 98 F 97.7 F Pulse Rate 75 69 64 Respiratory Rate 16 18 18 Blood Pressure 121/58 L 121/61 111/60 Pulse Oximetry 95 96 95 10/15/17 09:36 Temperature 97.5 F L Pulse Rate 92 H Respiratory Rate 18 Blood Pressure 120/58 L Pulse Oximetry 98 Intake & Output 10/14/17 10/15/17 10/15/17 18:59 06:59 18:59 Intake Total 50 / 50 1100 / 1100 Balance 50 / 50 1100 / 1100 Weight 74.2 kg Intake: IV 50 / 50 1100 / 1100 NS Inj 1,000 ML @ 35 mls/hr IV. 1000 / 1000 CONT .Q24H [facility] Rx#:[id number] Zosyn 3.375 GM Premix 50 ML @ 50 / 50 100 / 100 100 mls/hr IV.SIG Q6H [facility] Rx#: [id number] Other: # Voids 2 Date of Last Bowel Movement 10/13/17 10/14/17 Narrative: No apparerent anxiety moist mucous membranes PERRLA skin without rash respirations nonlabored moves all 4 extremities to command digits warm well perfused Middle fingertip with less than 1 cm draining sinus just proximal to the nail plate With gentle lifting of the nail plate, the nail bed is removed placed by a draining cavity down to bone Mild to moderate surrounding erythema Full active range of motion Patient able to make full composite fist with minimal tenderness Sensation intact light touch distal middle finger though diminished Assessment and Plan - Assessment (1) Osteomyelitis Code(s): M86.9 - Osteomyelitis, unspecified Status: Acute - Plan 82-year-old male with middle finger osteomyelitis No undrained collections appreciated No concern for flexor tenosynovitis Agree with IV antibiotics Please call with questions (1) Osteomyelitis Qualifiers: Osteomyelitis type: subacute Osteomyelitis location: hand Laterality: right Qualified Code(s): M86.241 - Subacute osteomyelitis, right hand
[2017-10-15] MEDS: Sod Chloride 0.9% Inj 1,000 ML IV.CONT SCH (21:27)
[2017-10-16] MEDS: Piperacil/Tazo 3.375 GM Premix 50 ML IV.SIG SCH ×3 (06:43→17:23)
[2017-10-16] MEDS: Insulin NovoLOG Aspart Correctional Sugar Inj SQ SCH ×5 (08:06→21:10)
[2017-10-16] MEDS: Senna/Docusate Sodium 8.6/50 MG Tablet PO SCH ×2 (08:07→21:10)
--- NOTE | 2017-10-16 10:15 | P.PN ---
Subjective Interval history: Follow-up on patient with right third finger osteo-myelitis. Patient seen and examined. Patient states overall he is doing well. He reports chronic dermatitis and is requesting an injection of steroid. He also reports insomnia. Daughter is at the bedside. Patient states that the right middle finger continues to improve with IV antibiotics. He denies any complaints of fever or chills. Denies any chest pain or shortness of breath. He denies any nausea, vomiting or abdominal pain. Physical Exam Vital signs: Vital Signs 10/15/17 20:00 10/16/17 00:00 10/16/17 04:00 Temperature 98.4 F 98.2 F 98.1 F Pulse Rate 67 66 86 Respiratory Rate 18 18 18 Blood Pressure 132/61 129/58 L 122/76 Pulse Oximetry 98 97 98 10/16/17 08:00 Temperature 99.1 F Pulse Rate 82 Respiratory Rate 20 Blood Pressure 120/62 Pulse Oximetry 96 Intake & Output 10/15/17 10/16/17 10/16/17 18:59 06:59 18:59 Intake Total 770 / 770 1100 / 1100 50 / 50 Balance 770 / 770 1100 / 1100 50 / 50 Weight 72.3 kg Intake: IV 50 / 50 1100 / 1100 50 / 50 NS Inj 1,000 ML @ 35 mls/hr IV. 1000 / 1000 CONT .Q24H JESSICA Rx#:[id number] Zosyn 3.375 GM Premix 50 ML @ 50 / 50 100 / 100 50 / 50 100 mls/hr IV.SIG Q6H JESSICA Rx#: [id number] Oral 720 / 720 Other: # Voids 5 3 Date of Last Bowel Movement 10/14/17 10/14/17 Narrative: GENERAL: This is a well-developed well-nourished elderly male patient , in no acute distress. A&O 3. Sitting on side of bed eating breakfast. Daughter is at the bedside. SKIN: Warm and dry. No generalized rash appreciated. HEENT: Atraumatic. Normocephalic. Pupils equal and round. No scleral icterus. No injection or drainage. No nasal bleeding or discharge. Mucous membranes pink and moist. Airway patent. NECK: Trachea midline. No JVD. CARDIOVASCULAR: Regular rate and rhythm. No murmur appreciated. RESPIRATORY: No accessory muscle use. Clear to auscultation. Breath sounds equal bilaterally. GASTROINTESTINAL: Abdomen soft, non-tender, nondistended. MUSCULOSKELETAL: Extremities without clubbing or cyanosis. Right third digit with small draining sinus proximal to the nail plate, mild to moderate surrounding erythema and edema with sparing of the PIP joint, minimally improved from yesterday. Good range of motion. 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 NEUROLOGICAL: Awake and alert. No obvious cranial nerve deficits. Motor grossly within normal limits. Nonfocal. Normal speech. PSYCHIATRIC: Appropriate mood and affect; insight and judgment normal. Results - Labs CBC & Chem 7: 10/15/17 07:04 10/15/17 07:04 Laboratory Results - last 24 hr 10/15/17 10/15/17 10/15/17 07:04 07:04 10:31 Sodium 139 Potassium 3.9 D Chloride 106 Carbon Dioxide 22.7 Anion Gap 10 BUN 21 H Creatinine 1.48 H Estimated GFR 45 L POC Glucose 274 H Random Glucose 96 Hemoglobin A1c 7.5 H Calcium 8.8 Phosphorus 2.9 Magnesium 2.0 Total Bilirubin 0.3 AST 17 ALT 14 Alkaline Phosphatase 66 Total Protein 6.5 Albumin 2.6 L TSH 1.480 Free T4 1.23 Random Vancomycin 5.4 10/15/17 10/15/17 10/15/17 14:58 18:57 21:30 Sodium Potassium Chloride Carbon Dioxide Anion Gap BUN Creatinine Estimated GFR POC Glucose 195 H 237 H 230 H Random Glucose Hemoglobin A1c Calcium Phosphorus Magnesium Total Bilirubin AST ALT Alkaline Phosphatase Total Protein Albumin TSH Free T4 Random Vancomycin 10/16/17 07:36 Sodium Potassium Chloride Carbon Dioxide Anion Gap BUN Creatinine Estimated GFR POC Glucose 176 H Random Glucose Hemoglobin A1c Calcium Phosphorus Magnesium Total Bilirubin AST ALT Alkaline Phosphatase Total Protein Albumin TSH Free T4 Random Vancomycin Microbiology 10/13/17 16:50 Blood - Peripheral Aerobic Blood Culture - Preliminary No growth in 2 days 10/13/17 16:50 Blood - Peripheral Anaerobic Blood Culture - Preliminary No growth in 2 days 10/13/17 16:55 Blood - Peripheral Aerobic Blood Culture - Preliminary No growth in 2 days 10/13/17 16:55 Blood - Peripheral Anaerobic Blood Culture - Preliminary No growth in 2 days 10/13/17 16:50 Abscess - Finger Gram Stain - Final 10/13/17 16:50 Abscess - Finger Wound Culture - Final Staphylococcus aureus Klebsiella pneumoniae Sharron albicans - Imaging Finger X-Ray 10/13/17 16:43 CONCLUSION: Destructive change involving the third distal phalanx most characteristic of osteomyelitis. Acute trauma with fracture could have a similar appearance. Hand MRI 10/15/17 00:00 CONCLUSION: 1. Findings are characteristic of osteomyelitis in the appropriate clinical setting of the third distal phalanx. - Procedures NONE Assessment and Plan - Assessment (1) Osteomyelitis Code(s): M86.9 - Osteomyelitis, unspecified Status: Acute (2) DM (diabetes mellitus) Code(s): E11.9 - Type 2 diabetes mellitus without complications Status: Acute (3) Renal insufficiency Code(s): N28.9 - Disorder of kidney and ureter, unspecified Status: Acute - Plan 82-year-old male with diabetes admitted with osteomyelitis right middle finger. Osteomyelitis: Right 3rd finger, s/p trauma after using sandpaper to file his nail 4 days ago, s/p eval at [facility], on PO antibiotics w/ transient improvement, now w/ worsening erythema/edema. MRI + osteomyelitis Dr. Espinoza following, appreciate assistance. No concern for flexor tenosynovitis. No plans for surgical intervention at this time. Consult ID, appreciate assistance Continue with IV antibiotics Zosyn for now Pain management with bowel regimen Patient plans to visit family [place] following discharge DM HgbA1c 7.5 Blood sugars adequately controlled Continue sliding scale w/ Accu-Cheks Will resume home Januvia at lower dose Hypertension Blood pressure well controlled at present off of antihypertensives Continue to monitor closely Clonidine prn with parameters Renal Insufficiency, suspect acute on chronic Creatinine 1.60, no previous labs for comparison improving, creatinine now 1.48, suspect this is near his baseline Avoid nephrotoxic agents Continue to monitor kidney function - repeat BMP in am DVT Prophylaxis: SCD/Teds Discussed Condition With: Patient, daughter, nursing staff and Dr. Ortiz Discharge Planning: Not ready for discharge. Discharge pending hand and ID clearance. (1) Osteomyelitis Qualifiers: Osteomyelitis type: subacute Osteomyelitis location: hand Laterality: right Qualified Code(s): M86.241 - Subacute osteomyelitis, right hand
--- NOTE | 2017-10-16 13:28 | P.DCO ---
Post Hospital Infusion Therapy Location of Infusion Therapy: Home Health Care IV Infusion Order Patient Weight: 72.3 kg - Diagnosis (1) Cellulitis Code(s): L03.90 - Cellulitis, unspecified (2) Osteomyelitis Code(s): M86.9 - Osteomyelitis, unspecified - Administer Medication Ceftriaxone Dose: 2 grams IV Directions: q 24 hours Stop Treatment: 11/24/17 - Additional Information Venous Access: PICC Line Additional Instructions: [x] Peripheral flush and dressing changes per protocol [x] Implanted port and central trampoline team coach: * Implanted port: 10 ml Normal Saline followed by 5 ml Heparin 100 units/ml Heparin flush after each use and monthly to maintain. [] May leave port accessed during therapy. [] May leave peripheral site accessed for duration of therapy. [x] If patient has SOB or respiratory distress, check oxygen saturation. If less than 90% or clinical signs of respiratory distress, administer oxygen at 2 L/min. via nasal cannula and notify physician. [x] Anaphylaxis/Reaction orders: * Stop infusion. * Keep IV line open with saline flush. * Notify physician. * Monitor vital signs every 15 minutes until symptoms resolve. * Check Oxygen saturation; Oxygen at 2 L/min. via nasal cannula if less than 90% or clinical signs of respiratory distress. * Administer diphenhydramine (Benadryl) 25 mg IV STAT, (unless patient has received as pre-med). May repeat once, if necessary. * Solu-Cortef 250 mg IVP over 30-60 seconds, use 100 mg vials for each dissolution. * Epinephrine (1mg/1 ml) 0.3 mg subcutaneously or IVP now with any signs of respiratory distress. * Check with physician for new additional pre-med orders if patient is re- challenged or re-treated. [x] May remove PICC line when treatment complete, after confirming with Physician. [x] If the patient is admitted to the hospital, the ED, or transferred via [facility] , complete transfer form including medication reconciliation order sheet. Weekly Labs: [facility] Additional Information: Patient to follow up with his primary care physician in [place] upon arrival to [place]. Allergies No Known Allergies Allergy (Unverified 10/13/17 16:20) (1) Cellulitis Qualifiers: Site of cellulitis: extremity Site of cellulitis of extremity: finger Laterality: right Qualified Code(s): L03.011 - Cellulitis of right finger (2) Osteomyelitis Qualifiers: Osteomyelitis type: subacute Osteomyelitis location: hand Laterality: right Qualified Code(s): M86.241 - Subacute osteomyelitis, right hand
--- NOTE | 2017-10-16 14:27 | MB ---
cc: Ramón Marshall MD DATE: 10/16/2017 DATE OF CONSULTATION: 10/16/2017 REQUESTING PHYSICIAN: Dr. Ortiz REASON: Osteomyelitis of the right third finger. HISTORY OF PRESENT ILLNESS: This is an 82-year-old white male who has diabetes mellitus. The patient filed his right third finger with sandpaper approximately 2 weeks ago and subsequently developed abrasion with exposure of the flesh at the tip of the fingernail area and subsequently had drainage. His daughter was in the process of moving with him to [place] and she noted that there was dark, discolored drainage coming from the finger and there was redness and swelling and brought him to the emergency department here at [facility] for evaluation. The patient was put on IV antibiotics and culture was taken of the drainage from the fluid and came back showing Staphylococcus aureus, Klebsiella and Sharron albicans. An x-ray of the finger was performed and it showed destructive changes involving the third distal phalanx characteristic of osteomyelitis. MRI of the hand was performed as well on 10/15/2017 and it also shows findings characteristic of osteomyelitis involving the distal phalanx. The patient was evaluated by hand surgeon and it was felt that there is no need for surgery and antibiotic is recommended. It is felt that there was no concern for flexor tenosynovitis. The patient feels well. He denies chills, fever, nausea, vomiting. He has no other complaints. This consultation is requested for antibiotic management. PAST MEDICAL HISTORY: 1. Diabetes mellitus. 2. Peripheral neuropathy. ALLERGIES: NO KNOWN DRUG ALLERGIES. MEDICATIONS: 1. Vancomycin. 2. Piperacillin/tazobactam. 3. Insulin. 4. Pravachol. 5. Renay-Colace. SOCIAL HISTORY: No tobacco, no alcohol, no illicit drugs. The patient is single. He is in the process of moving to [place] with his daughter. FAMILY HISTORY: Noncontributory. REVIEW OF SYSTEMS: All systems reviewed and are negative except for that mentioned in the History Of Present Illness. PHYSICAL EXAMINATION: GENERAL: A well-developed male in no acute distress. He is awake and alert and oriented. VITAL SIGNS: Includes temperature 98.1, BP 138/68, respirations 20, heart rate 70. HEENT: Head is atraumatic. Extraocular movements grossly intact. Pupils reactive to light. No icterus. Oropharynx: Moist mucosa without visible lesions. NECK: Supple without adenopathy. LUNGS: Clear to auscultation. HEART: Regular S1 and S2. No murmurs, rubs or gallops. ABDOMEN: Bowel sounds present. Soft, nontender. RECTAL: Not performed. EXTREMITIES: The right third finger has erythema at both the proximal and distal aspect between the joints and there is a dark discoloration of the fingernail and some maceration at the tip of the finger around the fingernail. The dorsum of the hand has no edema or erythema. Decreased sensation over the third finger. Ulnar and radial pulses are intact. The remainder of the extremities have no clubbing, cyanosis or edema. SKIN: No diffuse rash. NEUROLOGIC: No gross focal finding. PSYCH: Patient is calm and cooperative and has normal mood. LABORATORY DATA: WBC 6.4, platelets 245, hemoglobin 11.0, 58% neutrophils, 18% lymphocytes, 11%, monocytes, 10% eosinophils. Creatinine 1.48, BUN 45, sodium 139. Liver function tests normal. IMPRESSION: 1. Osteomyelitis involving the right fifth finger due to Staphylococcus aureus, Klebsiella and Sharron. 2. Diabetes mellitus. 3. Right third finger abscess at the distal aspect. 4. Cellulitis of the right third finger, which was spreading up the hand, but now is receding. 5. Acute kidney disease. RECOMMENDATIONS: 1. Discontinue vancomycin. 2. Continue piperacillin/tazobactam. 3. Begin ceftriaxone with first dose to be given tomorrow morning. 4. Arrangements for outpatient intravenous antibiotics with ceftriaxone for 6 weeks. 5. PICC line insertion for outpatient antibiotics. 6. Case Management to arrange for the patient to have outpatient antibiotic administered when he gets to [place]. 7. Patient's daughter notified to arrange for him to see his primary physician immediately when he arrives in [place] and referral for Infectious Disease followup as well. 8. The orders have been placed on infusion form for Case Management to work on setting up antibiotics and a PICC line has been ordered. 9. Oral Diflucan to cover the Sharron recovered on the sample from the culture. The Diflucan also to be taken for 6 weeks treatment. Thank you for this consultation. Further recommendations will be given upon followup if necessary. MD MELISSA Asencio/HASEEB , 01:43 PM , 02:08 PM
[2017-10-16] MEDS ORDERED: Vancomycin Inj 1,000 MG in Sodium Chlor 0.9% Inj 250 ML IV.SIG SCH (15:00)
[2017-10-16] MEDS ORDERED: Heparin Central Flush 100 UNIT/ML 5 ML Vial IV.FLUSH PRN (15:25)
[2017-10-16] MEDS: Heparin Central Flush 100 UNIT/ML 5 ML Vial IV.FLUSH SCH (15:52)
[2017-10-17] MEDS: Piperacil/Tazo 3.375 GM Premix 50 ML IV.SIG SCH ×3 (00:44→12:15)
[2017-10-17 05:39] LABS: Calcium 8.6 mg/dL (8.5-10.1); Carbon Dioxide 27.1 meq/L (21.0-32.0); Potassium 3.8 meq/L (3.5-5.1)
[2017-10-17] MEDS: Insulin NovoLOG Aspart Correctional Sugar Inj SQ SCH (08:16)
[2017-10-17] MEDS: Heparin Central Flush 100 UNIT/ML 5 ML Vial IV.FLUSH SCH (08:17)
[2017-10-17] MEDS: Senna/Docusate Sodium 8.6/50 MG Tablet PO SCH (08:20)
[2017-10-17 08:35] VITALS: BP 130/58; PULSE 90; RESP 16; TEMP 97.4; O2SAT 97
--- NOTE | 2017-10-17 09:02 | P.DS ---
Date of admission: 10/13/17 18:14 Primary care physician: No Primary Care Physician Attending physician on discharge: Margarita Clark Brief History from admission: This is an 82-year-old male with a PMH of DM and Peripheral Neuropathy who presented to ER with complaints of right third finger swelling and redness. Pt states he filed his nail down w/ "sandpaper" approx 4 days ago, since he has neuropathy of that digit he didn't feel it when he scraped the skin on his finger. States he is visiting from [place], was previously in [place] a few days ago and was seen at [facility] for c/o right third finger redness/ swelling. Was discharged on antibiotics which he states he has been taking and noted improvement, however now w/ increasing redness/swelling. Denies fever or chills. On arrival, BP 154/70, HR 93, O2 sat 100% on RA, Afebrile. CBC essentially unremarkable. INR 1.0. Creatinine 1.60, no previous labs for comparison. Finger X-ray with destructive changes involving the third distal phalanx most characteristic of osteomyelitis versus acute trauma with fracture. Dr. Galarza consulted, plan is for surgical intervention in am. S/p Vanc/ Zosyn in ER. DS: Diagnosis - Discharge Diagnosis (1) Osteomyelitis Status: Acute (2) Cellulitis Status: Acute (3) DM (diabetes mellitus) Status: Acute (4) Renal insufficiency Status: Acute (5) Staph aureus infection Status: Acute (6) Klebsiella infection Status: Acute DS: Medications - Discharge Medications Prescriptions: fluconazole [Diflucan] 200 mg PO DAILY 30 Days #60 tab fluconazole 200 mg PO DAILY #30 tab sitagliptin [Januvia] 50 mg PO DAILY 30 Days #30 tab white petrolatum-mineral oil [Eucerin] 1 applicatio TOPICAL BID #1 bottle DS: Summary Hospital Course: Patient was seen in consultation by hand and infectious disease service. No surgical intervention was warranted. No evidence of flexor tenosynovitis. Patient was started on IV Zosyn and vancomycin and was then changed IV Rocephin and oral Diflucan. PICC line was placed. Wound cultures were positive for staph aureus, Klebsiella pneumoniae and Sharron. Patient improved clinically. Blood cultures failed to show any growth. Patient was cleared for discharge from specialty services. Case management assisted with discharge planning and follow-up with infectious disease in [place] where patient was traveling to following discharge. Patient to continue on IV antibiotic therapy and oral Diflucan for 6 weeks. - Time Spent with Patient Total time spent providing and/or coordinating discharge services: Greater than 30 minutes Exam Vital signs: Vital Signs 10/16/17 12:00 10/16/17 16:00 10/16/17 20:00 Temperature 98.1 F 97.4 F L 98 F Pulse Rate 70 74 70 Respiratory Rate 20 20 20 Blood Pressure 138/68 113/71 125/64 Pulse Oximetry 96 96 95 10/17/17 00:00 10/17/17 04:00 10/17/17 08:00 Temperature 97.3 F L 97.7 F 97.4 F L Pulse Rate 64 79 90 Respiratory Rate 20 20 16 Blood Pressure 121/58 L 135/68 130/58 L Pulse Oximetry 99 96 97 Intake & Output 10/16/17 10/17/17 10/17/17 18:59 06:59 18:59 Intake Total 1400 / 1400 50 / 50 150 / 150 Balance 1400 / 1400 50 / 50 150 / 150 Weight 72.3 kg 56.8 kg Intake: IV 1400 / 1400 50 / 50 150 / 150 NS Inj 1,000 ML @ 35 mls/hr IV. 1000 / 1000 CONT .Q24H JESSICA Rx#:[id number] Zosyn 3.375 GM Premix 50 ML @ 150 / 150 50 / 50 50 / 50 100 mls/hr IV.SIG Q6H JESSICA Rx#: [id number] Vancomycin Inj 1,000 MG In NS 250 / 250 Inj 250 ML @ 250 mls/hr IV.SIG Q24H JESSICA Rx#:[id number] Rocephin Inj 2,000 MG In NS Inj 100 / 100 100 ML @ 200 mls/hr IV.SIG Q24H JESSICA Rx#:[id number] Oral 0 / 0 Other: # Voids 4 3 Date of Last Bowel Movement 10/14/17 Narrative: GENERAL: Well-developed well-nourished elderly male patient, in no acute distress. Awake and alert. Oriented 4. SKIN: Warm and dry. HEAD: Atraumatic. Normocephalic. EYES: Pupils equal and round. No scleral icterus. No injection or drainage. ENT: No nasal bleeding or discharge. Mucous membranes pink and moist. NECK: Trachea midline. No JVD. CARDIOVASCULAR: Regular rate and rhythm. RESPIRATORY: Nonlabored. Clear to auscultation. Breath sounds equal bilaterally. GASTROINTESTINAL: Abdomen soft, non-tender, nondistended. +BS. MUSCULOSKELETAL: Right middle finger with small draining sinus proximal to the nail plate, mild to moderate surrounding erythema and edema. Good range of motion. NEUROLOGICAL: Awake and alert. No obvious cranial nerve deficits. Motor grossly within normal limits. Nonfocal. Normal speech. PSYCHIATRIC: Appropriate mood and affect; insight and judgment normal. Results Procedures completed during hospitalization: NONE Labs on day of discharge: Labs from last 24 hours 10/17/17 10/17/17 10/16/17 08:08 04:55 20:07 Sodium 141 Potassium 3.8 Chloride 107 Carbon Dioxide 27.1 Anion Gap 7 BUN 25 H Creatinine 1.60 H Estimated GFR 41 L POC Glucose 200 H 205 H Random Glucose 198 H D Calcium 8.6 Random Vancomycin 10/16/17 10/16/17 10/16/17 16:56 12:32 08:36 Sodium Potassium Chloride Carbon Dioxide Anion Gap BUN Creatinine Estimated GFR POC Glucose 165 H 283 H Random Glucose Calcium Random Vancomycin 13.4 Preliminary micro results at discharge 10/13/17 16:50 Aerobic Blood Culture - Preliminary Blood - Peripheral No growth in 3 days Anaerobic Blood Culture - Preliminary No growth in 3 days 10/13/17 16:55 Aerobic Blood Culture - Preliminary Blood - Peripheral No growth in 3 days Anaerobic Blood Culture - Preliminary No growth in 3 days - Impressions ITS Impressions Finger X-Ray 10/13/17 16:43 CONCLUSION: Destructive change involving the third distal phalanx most characteristic of osteomyelitis. Acute trauma with fracture could have a similar appearance. Hand MRI 10/15/17 00:00 CONCLUSION: 1. Findings are characteristic of osteomyelitis in the appropriate clinical setting of the third distal phalanx. Discharge Plan - Discharge Disposition Patient Disposition: /Home Health Service - Discharge Condition Condition: Stable - Discharge Order Discharge Orders: Discharge Order (Routine); Ordered 10/17/17 Ordered By: Jennifer Sarmiento - Discharge Details Anticipated Discharge Date: 10/17/17 - Physicians Team Primary Care Provider: Primary Care Ian,Delia Attending Provider: Margarita Clark Other Providers: Jamari Galarza MD ; Ramón Marshall MD ; Jevon Lorenz,Agency
--- NOTE | 2017-10-17 09:05 | P.DCO ---
- Diagnosis (1) Osteomyelitis (2) Cellulitis - Home Health Nursing Order: Medical education, Signs/symptoms of disease process, Medication education-adverse effect, Wound care and dressing changes, Nursing assessment with vital signs, IV medication administration - Certification I have seen patient Kenyon Dewitt on 10/17/17. My clinical findings support the need for the requested home health care services because: Injectable medication education/administration I certify that my clinical findings support that this patient is homebound because: Post-op weakness, Unable to use public transportation (1) Osteomyelitis Qualifiers: Osteomyelitis type: subacute Osteomyelitis location: hand Laterality: right Qualified Code(s): M86.241 - Subacute osteomyelitis, right hand (2) Cellulitis Qualifiers: Site of cellulitis: extremity Site of cellulitis of extremity: finger Laterality: right Qualified Code(s): L03.011 - Cellulitis of right finger
--- NOTE | 2017-10-17 09:06 | P.PN ---
Subjective Interval history: Follow-up on patient with right third finger osteo-myelitis. Patient seen and examined. Patient states he is doing well. He denies any new medical complaints. He reports continued improvement in right third finger swelling, redness and discomfort. Physical Exam Vital signs: Vital Signs 10/16/17 12:00 10/16/17 16:00 10/16/17 20:00 Temperature 98.1 F 97.4 F L 98 F Pulse Rate 70 74 70 Respiratory Rate 20 20 20 Blood Pressure 138/68 113/71 125/64 Pulse Oximetry 96 96 95 10/17/17 00:00 10/17/17 04:00 10/17/17 08:00 Temperature 97.3 F L 97.7 F 97.4 F L Pulse Rate 64 79 90 Respiratory Rate 20 20 16 Blood Pressure 121/58 L 135/68 130/58 L Pulse Oximetry 99 96 97 Intake & Output 10/16/17 10/17/17 10/17/17 18:59 06:59 18:59 Intake Total 1400 / 1400 50 / 50 150 / 150 Balance 1400 / 1400 50 / 50 150 / 150 Weight 72.3 kg 56.8 kg Intake: IV 1400 / 1400 50 / 50 150 / 150 NS Inj 1,000 ML @ 35 mls/hr IV. 1000 / 1000 CONT .Q24H JESSICA Rx#:[id number] Zosyn 3.375 GM Premix 50 ML @ 150 / 150 50 / 50 50 / 50 100 mls/hr IV.SIG Q6H JESSICA Rx#: [id number] Vancomycin Inj 1,000 MG In NS 250 / 250 Inj 250 ML @ 250 mls/hr IV.SIG Q24H JESSICA Rx#:[id number] Rocephin Inj 2,000 MG In NS Inj 100 / 100 100 ML @ 200 mls/hr IV.SIG Q24H JESSICA Rx#:[id number] Oral 0 / 0 Other: # Voids 4 3 Date of Last Bowel Movement 10/14/17 Narrative: GENERAL: This is a well-developed well-nourished elderly male patient , in no acute distress. A&O 3. Sitting on side of bed. SKIN: Warm and dry. No generalized rash appreciated. HEENT: Atraumatic. Normocephalic. Pupils equal and round. No scleral icterus. No injection or drainage. No nasal bleeding or discharge. Mucous membranes pink and moist. Airway patent. NECK: Trachea midline. No JVD. CARDIOVASCULAR: Regular rate and rhythm. No murmur appreciated. RESPIRATORY: No accessory muscle use. Clear to auscultation. Breath sounds equal bilaterally. GASTROINTESTINAL: Abdomen soft, non-tender, nondistended. MUSCULOSKELETAL: Extremities without clubbing or cyanosis. Right third digit with small draining sinus proximal to the nail plate, mild to moderate surrounding erythema and edema with sparing of the PIP joint, minimally improved from yesterday. Good range of motion. 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 NEUROLOGICAL: Awake and alert. No obvious cranial nerve deficits. Motor grossly within normal limits. Nonfocal. Normal speech. PSYCHIATRIC: Appropriate mood and affect; insight and judgment normal. Results - Labs CBC & Chem 7: 10/15/17 07:04 10/17/17 04:55 Laboratory Results - last 24 hr 10/16/17 10/16/17 10/16/17 08:36 12:32 16:56 Sodium Potassium Chloride Carbon Dioxide Anion Gap BUN Creatinine Estimated GFR POC Glucose 283 H 165 H Random Glucose Calcium Random Vancomycin 13.4 10/16/17 10/17/17 10/17/17 20:07 04:55 08:08 Sodium 141 Potassium 3.8 Chloride 107 Carbon Dioxide 27.1 Anion Gap 7 BUN 25 H Creatinine 1.60 H Estimated GFR 41 L POC Glucose 205 H 200 H Random Glucose 198 H D Calcium 8.6 Random Vancomycin Microbiology 10/13/17 16:50 Blood - Peripheral Aerobic Blood Culture - Preliminary No growth in 3 days 10/13/17 16:50 Blood - Peripheral Anaerobic Blood Culture - Preliminary No growth in 3 days 10/13/17 16:55 Blood - Peripheral Aerobic Blood Culture - Preliminary No growth in 3 days 10/13/17 16:55 Blood - Peripheral Anaerobic Blood Culture - Preliminary No growth in 3 days - Procedures NONE Assessment and Plan - Assessment (1) Osteomyelitis Code(s): M86.9 - Osteomyelitis, unspecified Status: Acute (2) Cellulitis Code(s): L03.90 - Cellulitis, unspecified Status: Acute (3) DM (diabetes mellitus) Code(s): E11.9 - Type 2 diabetes mellitus without complications Status: Acute (4) Renal insufficiency Code(s): N28.9 - Disorder of kidney and ureter, unspecified Status: Acute - Plan 82-year-old male with diabetes admitted with osteomyelitis right middle finger. Osteomyelitis: Right 3rd finger, s/p trauma after using sandpaper to file his nail 4 days ago, s/p eval at [facility], on PO antibiotics w/ transient improvement, now w/ worsening erythema/edema. MRI + osteomyelitis Dr. Espinoza following, appreciate assistance. No concern for flexor tenosynovitis. No plans for surgical intervention at this time. ID following, appreciate assistance. Plan for 6 weeks of antibiotic therapy. Continue on IV Rocephin and oral Diflucan. Pain management with bowel regimen Patient plans to visit family in [place] for 2 months following discharge. CM assisting with discharge planning. DM HgbA1c 7.5 Blood sugars adequately controlled Continue sliding scale w/ Accu-Cheks Continue Januvia Hypertension Blood pressure well controlled at present off of antihypertensives Continue to monitor closely Clonidine prn with parameters Renal Insufficiency, suspect acute on chronic Creatinine 1.60, no previous labs for comparison improving, creatinine now 1.48, suspect this is near his baseline Avoid nephrotoxic agents Continue to monitor kidney function DVT Prophylaxis: SCD/Teds Discussed Condition With: patient, nursing staff, Dr. Clark Discharge Planning: Not ready for discharge. Discharge pending hand and ID clearance. (1) Osteomyelitis Qualifiers: Osteomyelitis type: subacute Osteomyelitis location: hand Laterality: right Qualified Code(s): M86.241 - Subacute osteomyelitis, right hand (2) Cellulitis Qualifiers: Site of cellulitis: extremity Site of cellulitis of extremity: finger Laterality: right Qualified Code(s): L03.011 - Cellulitis of right finger
[2017-10-18] MEDS ORDERED: Pharmacy Ordered Lab Info OTHER ONE (14:45)
== END 2017-10-17 13:10 | disposition home health service (06) ==
LOC: NEPC 14:35 → NEDA 18:14 → N05 21:18
PROVIDERS: ADMIT Hospitalist; ATTEND Hospitalist